=== PATIENT | male | born 1985 | race Caucasian/White ===

== ENCOUNTER 2024-11-08 20:55 | Emergency (ER) | payer OTHER, SELFPAY ==
[2024-11-08 20:57] VITALS: BMI 32.5
[2024-11-08 21:09] VITALS: BP 148/91; PULSE 71; RESP 18; TEMP 37; O2SAT 97
--- NOTE | 2024-11-08 21:50 | PD.EDEYE ---
ED Eye Problem RME/HPI General Chief complaint: Eye Problems Stated complaint: RT EYE INJURY Time Seen by Provider: 11/08/24 21:33 Source: patient Arrival date/time: 11/08/24 20:55 39-year-old male presents emergency department complaining of right eye pain after he accidentally scratched his eye with Velcro that occurred today. Mode of arrival: ambulatory Limitations: no limitations Related Data Patient tetanus UTD: Yes Previous Rx's ?Medication ?Instructions ?Recorded erythromycin 5 mg/gram (0.5 %) eye 0.5 inch ophthalmic (eye) QID 5 11/08/24 ointment days #3.5 grams Allergies Allergy/AdvReac Type Severity Reaction Status Date / Time No Known Allergies Allergy Verified 11/08/24 20:57 Review of Systems Review of Systems Systems Reviewed: All systems reviewed, normal except as documented Constitutional Constitutional: Reports system reviewed and no additional complaints, except as documented, Denies body ache(s), Denies chills and Denies fever(s) Eyes Eyes: Reports system reviewed and no additional complaints, except as documented, Denies change in vision, Reports irritation and Reports eye pain ENT Ears, Nose, Mouth, and Throat: Reports system reviewed and no additional complaints, except as documented, Denies disequilibrium, Denies dizziness, Denies sore throat and Denies vertigo Cardiovascular Cardiovascular: Reports system reviewed and no additional complaints, except as documented, Denies chest pain and Denies dyspnea Respiratory Respiratory: Reports system reviewed and no additional complaints, except as documented, Denies chest congestion, Denies cough and Denies dyspnea Gastrointestinal Gastrointestinal: Reports system reviewed and no additional complaints, except as documented, Denies abdominal pain, Denies nausea and Denies vomiting Musculoskeletal Musculoskeletal: Reports system reviewed and no additional complaints, except as documented, Denies abnormal gait and Denies arthralgias Integumentary/Breasts Skin/Breast: Reports system reviewed and no additional complaints, except as documented, Denies erythema, Denies rash and Denies wounds Neurologic Neurologic: Reports system reviewed and no additional complaints, except as documented, Denies abnormal gait, Denies disequilibrium, Denies dizziness and Denies vertigo Past Medical History Social History SMOKING STATUS: Never smoker ED Exam General Limitations: Present no limitations General appearance: Present alert and in no apparent distress Head Head exam: Present atraumatic Eye Eye exam: Present normal appearance, PERRL and EOMI Expanded Eye Exam Eyelids: bilateral: normal inspection Pupils: Bilateral: regular, round and reactive Sclera/Conjunctival: left: normal inspection and right: injection ENT ENT exam: Present normal exam, normal oropharynx and mucous membranes moist Neck Neck exam: Present normal inspection, full ROM and trachea midline Chest Chest inspection: Present normal inspection and symmetric chest wall rise Respiratory Respiratory exam: Present normal lung sounds bilaterally Cardiovascular Cardiovascular exam: Present regular rate, normal rhythm and normal heart sounds Abdominal Exam Abdominal exam: Present soft and normal bowel sounds Extremities Exam Extremities exam: Present normal inspection and full ROM Back Exam Back exam: Present normal inspection and full ROM Neurological Exam Neurological exam: Present alert, oriented X3 and CN II-XII intact Psychiatric Psychiatric exam: Present normal affect and normal mood Skin Skin exam: Present warm, dry, intact and normal color Course Quality Measures none Orders Category Date Time Status Recinos Lamp to Bedside X1 Care 11/08/24 21:49 Completed Erythromycin Op Oint 0.5% Med 11/08/24 23:03 Discontinued 1 gm RIGHT EYE X1 ONE Fluorescein Sodium [[id number]] Med 11/08/24 21:49 Discontinued 1 mg RIGHT EYE X1 ONE TETRACAINE Op Becki 0.5% [Pontocaine Op Becki 0.5%] Med 11/08/24 21:49 Discontinued 1 drop RIGHT EYE X1 ONE Vital Signs Vital signs: Vital Signs Temperature 98.6 F 11/08/24 21:09 Pulse Rate 71 11/08/24 21:09 Respiratory Rate 18 11/08/24 21:09 Blood Pressure 148/91 H 11/08/24 21:09 Pulse Oximetry (%) 97 11/08/24 21:09 Oxygen Delivery Method Room Air 11/08/24 21:09 97% room air within normal limits Procedures -ED Recinos Lamp Exam Right eye: Flourescein uptake:: Yes Recinos Lamp Findings: Corneal abrasion Eye MDM Narrative MDM Narrative:: 39-year-old male presents emergency department complaining of right eye pain after he accidentally scratched his eye with Velcro that occurred today. Patient denies any vision changes. With lab exam right eye corneal abrasion. No signs of periorbital cellulitis observed. 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 Patient data External records reviewed:: [facility] previous records Clinical information provided by:: patient Social determinants that could affect healthcare access:: none Patient has the following chronic illnesses:: None How is presenting disease/condition affected by chronic disease/condition?: no chronic disease Evaluation data The following diagnostics were reviewed and interpreted by me:: other (specify) (Not applicable) Lab and/or radiology exams considered but not ordered:: Not applicable Interpretation Summary: Not applicable Medications / Prescriptions Medications or Prescriptions considered but not ordered:: Ordered Medication administrations:: Medication Administration History Discontinued Medications Erythromycin (Erythromycin Op Oint 0.5% 1 Gm Packet) 1 gm RIGHT EYE X1 ONE Stop: 11/08/24 23:04 Last Admin: 11/08/24 23:11 Dose: 1 gm Documented By: TICO Co-signed By: CESAR Fluorescein Sodium (Fluorescein Sod 1 Mg Strp) 1 mg RIGHT EYE X1 ONE Stop: 11/08/24 21:50 Last Admin: 11/08/24 22:48 Dose: 1 mg Documented By: TICO Tetracaine HCl (Tetracaine Pf Op Becki 0.5% 4 Ml Drpette) 1 drop RIGHT EYE X1 ONE Stop: 11/08/24 21:50 Last Admin: 11/08/24 22:47 Dose: 1 drop Documented By: TICO Given Consultations Consultation(s) initiated? (list below): No Diagnosis Eye Problem Differential Diagnosis: corneal abrasion, conjunctivitis, acute iritis, periorbital cellulitis, subconjunctival hemorrhage and corneal ulcer Most likely diagnosis given after review of the tests above:: Corneal abrasion Admission Indicated Admission indicated?: not indicated Admission Request Was there a request for admission?: No Disposition Plan Disposition Plan: Discharge Discharge Attestation Discharge Attestation: The patient and all family members were given an opportunity to ask questions and understood the discharge instructions. Discharge instructions specifically effects, indications for sooner follow up or return to the emergency department, and the expected course of current diagnosis. Patient condition: Stable Discharge Plan Plan Patient Disposition: HOME (Self Care) Disposition Comment: Stable Prescriptions/Referrals Prescriptions/Med Rec: New erythromycin 5 mg/gram (0.5 %) ointment 0.5 inch ophthalmic (eye) QID 5 Days Qty: 3.5 0RF Problem List Clinical Impression: Corneal abrasion Patient/Caregiver Discharge Instructions Discharge Activity: activity as tolerated Education Materials: Corneal Injury, ED Corneal Abrasion Additional Instructions: Apply medication as prescribed. Follow-up with primary care provider and knitting machine fixer head within a week. Return to emergency department for any worsening symptoms or as needed. Print Language: Belarusian Stand Alone Forms: Krystle Award Info., Patient Portal Info Letter PA/HOSPITAL PHARMACIST Supervising Physician PA/HOSPITAL PHARMACIST Supervising Physician: Dr. Cuellar
[2024-11-08] MEDS: TETRACAINE PF OP SOL 0.5% 4 ML DRPETTE 1 DROP RIGHT EYE (22:47)
[2024-11-08] MEDS: FLUORESCEIN SOD 1 MG STRP RIGHT EYE (22:48)
[2024-11-08] MEDS: Erythromycin Op Oint 0.5% 1 GM PACKET RIGHT EYE (23:11)
== END 2024-11-08 23:19 | disposition home or self-care (01) ==
PROVIDERS: Emergency Provider Emergency Medicine
DX: S05.01XA Injury of conjunctiva and corneal abrasion without foreign body, right eye, initial encounter (principal); X58.XXXA Exposure to other specified factors, initial encounter
CPT/HCPCS: 99283; A9270

== ENCOUNTER 2025-04-16 16:39 | Emergency (ER) | payer OTHER, SELFPAY ==
[2025-04-16 17:13] VITALS: BP 139/79; PULSE 81; RESP 16; TEMP 38.3; O2SAT 99
[2025-04-16 17:16] VITALS: BMI 33.2
--- NOTE | 2025-04-16 17:21 | PC.NURSE ---
NO ANSWER WHEN CALLED FROM [facility]
--- NOTE | 2025-04-16 17:57 | PD.EDADULT ---
ED General RME/HPI General Chief complaint: General Adult/Misc Complain Stated complaint: I'M HAVING UTI ISSUES, CLOUDY URINE Time Seen by Provider: 04/16/25 17:35 Arrival date/time: 04/16/25 16:39 RME / HPI RME / HPI narrative: 39-year-old male presents to the ED with a complaint of urinary frequency, dysuria/bladder pain fever of 101.0 degrees, chills, body aches. He denies any nausea or vomiting, diarrhea, low back pain, or abdominal pain. He denies any flank pain, penile pain, or testicular pain. He denies any discharge/STD symptoms or any new partners. Related Data Previous Rx's ?Medication ?Instructions ?Recorded ciprofloxacin HCl 500 mg tablet 500 mg PO BID #20 tabs 04/16/25 (Cipro) Allergies Allergy/AdvReac Type Severity Reaction Status Date / Time No Known Allergies Allergy Verified 04/16/25 16:43 Review of Systems Review of Systems Systems Reviewed: All systems reviewed, normal except as documented ED Exam Narrative Physical exam: Alert and oriented, very pleasant 39-year-old male, no acute distress. Vital signs blood pressure 139/79, pulse 81, respirations 16 nonlabored, temp 101.0, O2 sat 99% on room air. Lungs are clear, regular rate and rhythm without murmurs, abdomen is soft and nontender. No CVA tenderness noted. Course Course Course Narrative: Urinalysis reveals turbid light yellow urine with a specific gravity of 1.006 with trace protein, trace ketones, 3+ blood, negative nitrites, positive leukocyte esterase, 22 RBCs, 205 WBCs, 1+ bacteria and amorphous crystals are present. Patient was given Tylenol 1000 mg p.o as well as ceftriaxone 2 g with lidocaine IM. Quality Measures none Orders Category Date Time Status Urinalysis, C/S if Indicated Stat Lab 04/16/25 17:50 Completed Urine Culture Stat Lab 04/16/25 17:50 Received Acetaminophen Tab [Tylenol ES Tab] Med 04/16/25 18:05 Discontinued 1,000 mg PO X1 ONE cefTRIAXone [Rocephin] 2 gm Med 04/16/25 18:06 Discontinued Lidocaine 1% 20 ml [Xylocaine 1% 20 ML] 4.2 ml IM X1 Vital Signs Vital signs: Vital Signs Temperature 101.0 F H 04/16/25 17:13 Pulse Rate 81 04/16/25 17:13 Respiratory Rate 16 04/16/25 17:13 Blood Pressure 139/79 H 04/16/25 17:13 Pulse Oximetry (%) 99 04/16/25 17:13 Oxygen Delivery Method Room Air 04/16/25 17:13 Discharge Plan Plan Patient Disposition: HOME (Self Care) Discharge Disposition comment: Stable and improved Prescriptions/Referrals Prescriptions/Med Rec: New ciprofloxacin HCl [Cipro] 500 mg tablet 500 mg PO BID Qty: 20 0RF Referrals: No Primary/Family,Physician [Primary Care Provider] - In 1 week Problem List Clinical Impression: Pyelonephritis Patient/Caregiver Discharge Instructions Education Materials: ED Pyelonephritis, Male (Adult) Additional Instructions: Take the antibiotics as prescribed and complete the course even though you may be feeling better. Follow-up with your primary care physician in 24 to 48 hours. Return to the ED for any new or worsening symptoms. Print Language: Welsh Stand Alone Forms: Krystle Award Info., Patient Portal Info Letter PA/KAREN Supervising Physician PA/KAREN Supervising Physician: Dr. Radha ROMEO Narrative [facility] hospital course: 39-year-old male presents to the ED with a complaint of urinary frequency, dysuria/bladder pain fever of 101.0 degrees, chills, body aches. He denies any nausea or vomiting, diarrhea, low back pain, or abdominal pain. He denies any flank pain, penile pain, or testicular pain. He denies any discharge/STD symptoms or any new partners. Alert and oriented, very pleasant 39-year-old male, no acute distress. Vital signs blood pressure 139/79, pulse 81, respirations 16 nonlabored, temp 101.0, O2 sat 99% on room air. Lungs are clear, regular rate and rhythm without murmurs, abdomen is soft and nontender. No CVA tenderness noted. Urinalysis reveals turbid light yellow urine with a specific gravity of 1.006 with trace protein, trace ketones, 3+ blood, negative nitrites, positive leukocyte esterase, 22 RBCs, 205 WBCs, 1+ bacteria and amorphous crystals are present. Patient was given Tylenol 1000 mg p.o as well as ceftriaxone 2 g with lidocaine IM. Patient will be discharged home with a prescription for Cipro. Patient was advised to follow-up with his primary care physician. Clinical Information Provided by patient Medical Records Reviewed None Meds/Rx Considered, not Ordered None Describe details: N/A Labs/Rad/Tests considered, not Ordered None Chronic Illness/Social Conditions which may negatively complicate care or outcome(s)-explain: None or not applicable EKG EKG not done Lab Interpretation Labs: interpreted by fl Lab(s) interpretation(s): Urinalysis reveals turbid light yellow urine with a specific gravity of 1.006 with trace protein, trace ketones, 3+ blood, negative nitrites, positive leukocyte esterase, 22 RBCs, 205 WBCs, 1+ bacteria and amorphous crystals are present. Imaging Imaging interpretation: none Medication Administration(s) Medication Administration History Discontinued Medications Acetaminophen (Acetaminophen 500 Mg Tablet) 1,000 mg PO X1 ONE Stop: 04/16/25 18:06 Last Admin: 04/16/25 18:44 Dose: 1,000 mg Documented By: RUFINO Ceftriaxone Sodium 2 gm/ (Lidocaine HCl 4.2 ml) 0 gm IM X1 ONE Stop: 04/16/25 18:07 Last Admin: 04/16/25 18:46 Dose: 2,000 mg Documented By: RUFINO Tylenol 1000 mg p.o. and ceftriaxone 2 g with lidocaine IM. Diagnosis Differential diagnosis: UTI, urethritis, pyelonephritis Most likely dx, and/or detailed dx discussion: Pyelonephritis Dispositon Disposition: Discharge Home
[2025-04-16 17:59] LABS: Collection Type, Urine Clean Catch
[2025-04-16 18:13] LABS: Amorphous Crystals,Urine Present (Absent); Bacteria,Urine 1+; Bilirubin,Urine Negative (Negative); Blood,Urine 3+ (Negative); Clarity,Urine Turbid (Clear/Hazy); Color,Urine Lt-Yellow (Lt Yel-Yel); Glucose, Urine Negative (Negative); Ketones,Urine Trace (Negative); Leukocyte Esterase,Urine Positive (Negative); Nitrite,Urine Negative (Negative); PH,Urine 6.5 (5.0-7.0); Protein,Urine Trace (Neg - Trace); RBC,Urine 22 /hpf (0-3); Specific Gravity,Urine 1.006 (1.001-1.035); Squamous Epithelial Cell,Urine < 1 /hpf (0-5); Urobilinogen,Urine Negative mg/dL (0.0-1.0); WBC,Urine 205 /hpf (0-5)
[2025-04-16 18:14] LABS: Culture Indicated,Urine Yes
[2025-04-16] MEDS: ACETAMINOPHEN 500 MG TABLET 1000 MG PO (18:44)
[2025-04-16] MEDS: cefTRIAXone 2 GM, LIDOCAINE 1% 20 ML 4.2 ML IM (18:46)
[2025-04-16 20:00] VITALS: BP 132/78; PULSE 80; RESP 16; TEMP 37.4; O2SAT 98
[2025-04-16 20:02] VITALS: TEMP 37.4
== END 2025-04-16 20:23 | disposition home or self-care (01) ==
PROVIDERS: Emergency Provider Emergency Medicine
DX: N12 Tubulo-interstitial nephritis, not specified as acute or chronic (principal)
CPT/HCPCS: 81001; 87077; 87086; 87186; 96372; 99283; J0696; J3490; A9270